=== PATIENT | female | born 1995 | race Caucasian/White ===

== ENCOUNTER 2021-02-14 06:25 | Inpatient (IN) ==
[2021-02-14] MEDS ORDERED: PITOCIN ONE ×2 (06:41→17:50)
[2021-02-14] MEDS ORDERED: BETADINE SOLN ONE (06:41)
[2021-02-14] MEDS ORDERED: D5 1/2 NS 1000 ML 1,000 ML IV ONE (06:41)
[2021-02-14] MEDS ORDERED: D5 1/2 NS 1L W PITOCIN 20 UNITS/L 20 UNITS/1,000 ML BAG IV ONE (06:42)
[2021-02-14] MEDS ORDERED: D5LR 1L W PITOCIN 10 UNITS/L 10 UNITS/1,000 ML BAG IV ONE (06:42)
[2021-02-14] MEDS ORDERED: MORPHINE SULFATE INJ 2 MG INJ IVP PRN (07:28)
[2021-02-14] MEDS ORDERED: PHENERGAN INJ 25 MG IM PRN ×2 (07:28→19:09)
[2021-02-14] MEDS ORDERED: D5LR 1L W PITOCIN 10 UNITS/L 10 UNITS/1,000 ML BAG IV PRN (07:28)
[2021-02-14] MEDS ORDERED: PITOCIN IVP ONE (07:28)
[2021-02-14] MEDS ORDERED: REGLAN INJ 10 MG VIAL IVP PRN (07:28)
[2021-02-14 07:49] LABS: BILIRUBIN,URINE NEGATIVE (NEGATIVE); BLOOD/HEMOGLOBIN,URINE 1+ (NEGATIVE); GLUCOSE, URINE NEGATIVE (NEGATIVE); KETONES,URINE NEGATIVE (NEGATIVE); LEUKOCYTE ESTERASE ,URINE 3+ (NEGATIVE); NITRITES,URINE NEGATIVE (NEGATIVE); PROTEIN,URINE NEGATIVE (NEGATIVE); UROBILINOGEN,URINE NORMAL (NORMAL)
[2021-02-14 08:00] LABS: APPEARANCE,URINE HAZY (CLEAR); BACTERIA,URINE TRACE /HPF (NEGATIVE); COLOR,URINE YELLOW (YELLOW); SQUAMOUS EPITHELIAL CELL,UR MANY /HPF (NEGATIVE)
[2021-02-14] MEDS ORDERED: D5 1/2 NS 1000 ML 1,000 ML IV SCH (08:00)
[2021-02-14 08:01] LABS: TRICHOMONAS,URINE MANY /HPF (NEGATIVE)
[2021-02-14] MEDS ORDERED: REGLAN INJ 10 MG VIAL ONE ×2 (09:07→17:50)
[2021-02-14] MEDS ORDERED: STADOL INJ ONE ×2 (09:34→12:26)
[2021-02-14] MEDS: STADOL INJ IVP PRN ×3 (09:45→12:40)
[2021-02-14] MEDS ORDERED: PHENERGAN INJ 25 MG IM ONE (12:37)
[2021-02-14] MEDS ORDERED: LR 1000 ML IV 1,000 ML IV ONE ×3 (12:45→17:26)
[2021-02-14] MEDS ORDERED: FENTANYL INJ 100 mcg ONE (12:45)
[2021-02-14] MEDS ORDERED: NAROPIN EPIDURAL 0.2% 100 ML ONE (12:46)
[2021-02-14] MEDS ORDERED: LIDOCAINE 2%-EPI 1:200,000 ONE (17:17)
[2021-02-14] MEDS ORDERED: DILAUDID INJ ONE (17:17)
[2021-02-14] MEDS ORDERED: ANCEF 1 GRAM IV PREMIX* 2 G/100 ML BAG IV ONE (17:26)
--- NOTE | 2021-02-14 17:26 | DR.OB ---
OB QUICK NOTE Assessment/Plan (1) Labor abnormality: Assessment/Plan: The pt has been in labor all day and has not descended below -1. She now has recurrent late decels and has had her pitocin managed but continues with no change. O2 was used. We will now move to a . (2) Non-reassuring heart rate with late deceleration:
[2021-02-14] MEDS ORDERED: OFIRMEV IV 1000 MG VIAL 1,000 MG/100 ML VIAL IV ONE (17:48)
[2021-02-14] MEDS ORDERED: EPHEDRINE SULFATE INJ ONE (17:50)
[2021-02-14] MEDS ORDERED: PEPCID 20 MG IV PREMIX* 20 MG/50 ML BAG IV ONE (18:02)
[2021-02-14] MEDS ORDERED: NARCAN INJ IVP PRN (19:09)
[2021-02-14] MEDS ORDERED: DILAUDID INJ IVP PRN (19:09)
[2021-02-14] MEDS ORDERED: BENADRYL INJ 50 MG VIAL IVP PRN (19:09)
[2021-02-14] MEDS ORDERED: MILK OF MAGNESIA PO PRN (19:26)
[2021-02-14] MEDS ORDERED: AMBIEN PO PRN (19:26)
[2021-02-14] MEDS ORDERED: D5 1/2 NS 1L W PITOCIN 20 UNITS/L 20 UNITS/1,000 ML BAG IV PRN (19:26)
[2021-02-14] MEDS ORDERED: OFIRMEV IV 1000 MG VIAL 1,000 MG/100 ML VIAL IV PRN (19:27)
[2021-02-15 05:18] LABS: HEMATOCRIT 29.8 % (36.0-47.0); HEMOGLOBIN 10.2 g/dL (12.0-16.0)
[2021-02-15] MEDS ORDERED: PERCOCET TAB 5/325 MG PO PRN (07:16)
--- NOTE | 2021-02-15 07:56 | NOTE.PROBC ---
Progress Note OB-C/S Subjective Data Subjective: No complaints, decreased lochia. Tolerating regular diet. No N/V. Ambulating well. Harris draining well. Pain under good control with epidural pain meds. Objective Data Result Diagrams: 02/15/21 03:45 Objective Data: CV= RRR no MRG Lungs=CTA Bilaterally Abd=(+) BS, soft, ND, appropriately tender near incision. Bandage removed. Incision clean/dry/intact, no erythema, no bleeding, no discharge. D ermabond/Stitches intact. Fundus firm/NT/ at 3 cm below umbilicus. Ext= No edema, NT, No Cords. Graduated Compression Stockings/Sequential Compression Devices Bilaterally. Plan (1) Labor abnormality: (2) Non-reassuring heart rate with late deceleration: (3) delivery delivered: Plan: will plan on change to po meds and plan to start Lovenox in the AM
[2021-02-15] MEDS: PRENATAL PLUS PO SCH (09:18)
[2021-02-15] MEDS ORDERED: LOVENOX INJ 40 MG SYR SC SCH (18:16)
--- NOTE | 2021-02-16 08:01 | NOTE.PROBC ---
Progress Note OB-C/S Subjective Data Subjective: No complaints, decreased lochia. Tolerating regular diet. No N/V. Ambulating well. Harris draining well. Pain under good control with percocet. Objective Data Result Diagrams: 02/15/21 03:45 Objective Data: CV= RRR no MRG Lungs=CTA Bilaterally Abd=(+) BS, soft, ND, appropriately tender near incision. Bandage removed. Incision clean/dry/intact, no erythema, no bleeding, no discharge. Dermabond/S titches intact. Fundus firm/NT/ at 3 cm below umbilicus. Ext= No edema, NT, No Cords. Graduated Compression Stockings/Sequential Compression Devices Bilaterally. Plan (1) Labor abnormality: (2) Non-reassuring heart rate with late deceleration: (3) delivery delivered: Plan: doing well. Start Lovenox today as per Perinatologist recommendations. She is ready for D/C.
[2021-02-16 08:02] VITALS: BP 139/76
[2021-02-16] MEDS ORDERED: LOVENOX INJ 40 MG SYR SC SCH (09:00)
[2021-02-16] MEDS: PRENATAL PLUS PO SCH (09:00)
== END 2021-02-16 11:25 | disposition home or self-care (01) | DRG 788 ==
LOC: LD 06:25 → MED/SURG 19:28
PROVIDERS: ADMIT Obstetrics & Gynecology; ATTEND Obstetrics & Gynecology
DX: Z37.0 Single live birth; O26.893 Other specified pregnancy related conditions, third trimester; O09.93 Supervision of high risk pregnancy, unspecified, third trimester; O62.0 Primary inadequate contractions; Z3A.39 39 weeks gestation of pregnancy; O76 Abnormality in fetal heart rate and rhythm complicating labor and delivery